=== PATIENT | female | born 1980 | race Caucasian/White ===

== ENCOUNTER 2017-07-25 04:54 | Observation (INO) | payer BC, OTHER ==
[2017-07-25] VITALS (11 sets, daily range): BP systolic 100–121; BP diastolic 56–72; PULSE 64–88; TEMP 36.3–36.9; O2SAT 93–100; Ht 149.9 cm; Wt 46.4 kg
[~2017-07-25] VITALS: Ht 149.9 cm; Wt 46.4 kg
[~2017-07-25 04:54] MED LIST: CLON0.5T3 PO; DICY20TA10 PO; ONDA4TAB46 PO; SERT50TA PO; [UNRECOGNIZED DRUG - CODE] PO
[2017-07-25] MEDS ORDERED: CIPROFLOXACIN / D5W 400 MG IV SCH (06:00)
[2017-07-25] MEDS ORDERED: CLINDAMYCIN IV 900 MG in DEXTROSE 5% ADD-VANTAGE 100ML 100 ML IV SCH (06:00)
[2017-07-25] MEDS ORDERED: LACTATED RINGER'S 1000ML 1,000 ML IV SCH (06:00)
[2017-07-25] MEDS ORDERED: LIDOCAINE HCL 1% 20 ML VIAL ONE (06:37)
[2017-07-25] MEDS ORDERED: CEFAZOLIN SOD 1 GM VIAL ONE (06:38)
[2017-07-25] MEDS ORDERED: BUPIVACAINE 0.5 % 5 MG/1 ML MPF 30ML VIAL ONE (06:38)
--- NOTE | 2017-07-25 06:40 | History & Physical Bridge Note ---
H&P Re-Evaluation Bridge Note: I have examined the patient, reviewed the History & Physical and in the interval since the performance of the History & Physical I have noted the following changes of clinical significance: No changes noted
[2017-07-25] MEDS ORDERED: MIDAZOLAM HCL 1 MG/ML 2ML VIAL ONE (06:47)
[2017-07-25] MEDS ORDERED: FENTANYL CITRATE INJ 50 MCG/1 ML 2 ML VIAL ONE (06:47)
[2017-07-25] MEDS ORDERED: KETOROLAC TROMETHAMINE 30 MG/ML VIAL ONE (07:36)
[2017-07-25] MEDS ORDERED: ONDANSETRON INJ 2 MG/ML 2 ML VIAL ONE ×2 (07:36→08:47)
[2017-07-25] MEDS ORDERED: CISATRACURIUM BESYLATE IV SOLN 2 MG/ML 10 ML VIAL ONE (07:36)
[2017-07-25] MEDS ORDERED: LIDOCAINE HCL 2% 2 ML VIAL (20MG/ML) ONE (07:36)
[2017-07-25] MEDS ORDERED: PROPOFOL IV EMULSION 10 MG/ML 20 ML VIAL IV ONE (07:36)
[2017-07-25] MEDS ORDERED: DEXAMETHASONE SOD INJ 4 MG/ML VIAL ONE (07:36)
[2017-07-25] MEDS ORDERED: GLYCOPYRROLATE INJ 0.2 MG/ML VIAL ONE (07:36)
[2017-07-25] MEDS ORDERED: NEOSTIGMINE METHYLSULFATE 5 MG/5 ML SYR ONE (07:36)
[2017-07-25] MEDS ORDERED: LARYING-O-JET KIT (LTA) ONE ×2 (07:36)
[2017-07-25] MEDS ORDERED: EpHEDrine SULFATE 50MG/5ML SYR ONE (07:58)
--- NOTE | 2017-07-25 08:13 | [facility] Operative Report ---
Operative Report Operative Date Jul 25, 2017. Pre-Operative Diagnosis Ventral Hernia Post-Operative Diagnosis Same- 2 defects Procedure(s) Performed Laparoscopic Ventral Hernia Repair with Mesh Surgeon Dr Almonte [employer] Attendant Surgeon(s) Melquiades Bautista PA-C Estimated Blood Loss 10ml Findings 3 cm defect at umbilicus and 1-2 cm defect 3 cm above umbilicus Specimens none Anesthesia gen Complication(s) None Disposition Recovery Room / PACU I attest to the content of the Intraoperative Record and any orders documented therein. Any exceptions are noted below.
[2017-07-25] MEDS ORDERED: PROMETHAZINE HCL INJ 12.5 MG in SODIUM CHLORIDE 0.9% 50ML 50 ML IV PRN (08:15)
[2017-07-25] MEDS ORDERED: NALOXONE HCL 0.4 MG/1 ML VIAL/CARP IV PRN (08:15)
[2017-07-25] MEDS ORDERED: FLUMAZENIL 0.1 MG/1 ML 10 ML VIAL IV PRN (08:15)
[2017-07-25] MEDS ORDERED: ATROPINE SULFATE 0.1 MG/ML 5ML SYR IV PRN (08:15)
[2017-07-25] MEDS ORDERED: CLONAZEPAM 0.5 MG TAB PO PRN (08:15)
[2017-07-25] MEDS ORDERED: MoRPHine SULFATE 2 MG/ML CARP IV PRN (08:15)
[2017-07-25] MEDS ORDERED: ONDANSETRON INJ 2 MG/ML 2 ML VIAL IV PRN ×2 (08:15)
[2017-07-25] MEDS ORDERED: OXYCODONE/ACETAMINOPHEN 5-325 TAB PO PRN (08:15)
[2017-07-25] MEDS ORDERED: HYDROmorphone INJ 1 MG/ML SYR IV PRN (08:15)
[2017-07-25] MEDS ORDERED: EpHEDrine SULFATE INJ 50 MG/ML AMP IV PRN (08:15)
[2017-07-25] MEDS ORDERED: HYDROmorphone INJ 1 MG/ML SYR ONE (08:27)
[2017-07-25] MEDS ORDERED: OXYC-57 PO (08:37)
[2017-07-25] MEDS ORDERED: CEPH-571 PO (08:37)
--- NOTE | 2017-07-25 08:41 | Discharge Instructions ---
Discharge Instructions Date of Service Jul 25, 2017. Admission Reason for Admission: Ventral Hernia Discharge Discharge Diagnosis / Problem: incisional hernias Discharge Goals Goal(s): Decrease discomfort, Improve function, Improve disease control Activity Recommendations Activity Limitations: as noted below Lifting Limitations: no more than 25 pounds Exercise/Sports Limitations: until after follow-up appointment May Resume Sexual Activity: when tolerated Shower/Bathe: tomorrow Driving or Machine Use: wait 5 days SPECIAL CARE INSTRUCTIONS: * Cover incisions and change daily for comfort/drainage. may leave uncovered with dermabond * Leave steri strips in place avoid constipation- may take Senokot S and Milk of magnesia twice daily as directed on the package * May use ibuprofen for pain as tolerated. * Expect some swelling and bruising. Call your doctor if: * Temperature above 101 degrees * Pain not relieved by pain medicine ordered * There is increased drainage or redness from any incision * You have any unanswered questions or concerns [phone]. FOLLOW UP VISIT: If not already scheduled, please call the office for a follow-up visit. for 2 weeks- check up- no sutures to remove OFFICE PHONE NUMBER: Dr. Almonte Office . Current Hospital Diet Patient's current hospital diet: Regular Diet Discharge Diet Recommended Diet: Regular Diet Procedures Procedures Performed: Laparoscopic Ventral Hernia Repair with Mesh Pending Studies Studies pending at discharge: no Medical Emergencies . Who to Call and When: Medical Emergencies: If at any time you feel your situation is an emergency, please call 911 immediately. . Non-Emergent Contact Non-Emergency issues call your: Primary Care Provider, Surgeon . "Provider Documentation" section prepared by Donovan Almonte. . VTE Core Measure Inpt VTE Proph given/why not?: SCD's
--- NOTE | 2017-07-25 08:50 | OPERATIVE REPORT ---
DATE OF OPERATION: 07/25/2017 NAME OF OPERATION: Laparoscopic incisional hernia repair. PREOPERATIVE DIAGNOSIS: Incisional hernia. POSTOPERATIVE DIAGNOSIS: Same with 2 defects. STAFF SURGEON: Dr. Donovan Almonte. RN TELEHEALTH: Melquiades Bautista PA-C ANESTHESIA: General. FINDINGS: Under laparoscopy, I was able to identify 2 defects, one at the umbilicus, which was approximately 3 cm and then there was a second defect approximately 2-3 cm above this at a site of previous repair of approximately 1-2 cm in diameter. These were both repaired with 1 piece of mesh. DESCRIPTION OF PROCEDURE: The patient was brought into the operating room and placed on the operating table in the supine position. Pneumatic stockings, orogastric tube and Ledbetter catheter were placed. Her abdomen was prepped and draped in the usual fashion. 0.5% plain Marcaine was used to anesthetize all incisions. Incision was made in the left upper quadrant, carrying dissection down under visualization, entering the abdominal cavity, placing an 11-mm port and producing pneumoperitoneum. A camera was passed and a 5-mm port was placed in the left lower quadrant and two 5-mm ports placed on the right side, one on the right lower quadrant and one in the mid right side. The defects were identified. There was some preperitoneal fatty tissue attached to the upper site. This was taken down and the fascia mobilized 3-4 cm around both defects. A 12.5-cm piece of Surgimesh was obtained. It was trimmed to 10 cm wide, placed into the abdomen with the polypropylene toward the fascia and the silicone toward the bowel. There was omentum covering her bowel. The suture in the center of the mesh was brought up through the abdominal wall and then the mesh was secured using 2 rows of absorbable tacks, one outer and one inner row. With good placement, the mid suture was removed and then all ports were removed. The defects were closed using subcuticular 4-0 Monocryl with Steri-Strips in the left upper quadrant and Dermabond on the remainder of the sites. The patient was transferred to recovery room in stable condition. I attest to the content of the Intraoperative Record and any orders documented therein. Any exception s are noted below.
[2017-07-25] MEDS ORDERED: IV FLUIDS COMPLETED PRN (09:00)
[2017-07-25] MEDS: SERTRALINE HCL 50 MG TAB PO SCH (09:00)
--- NOTE | 2017-07-25 09:40 | Anesthesiology Progress Note ---
Anesthesia Post Op Note Date & Time Jul 25, 2017 at 09:40 Vital Signs Pain Intensity: 6 Vital Signs Past 12 Hours Date Time Temp Pulse Resp B/P (MAP) Pulse Ox O2 Delivery O2 Flow Rate FiO2 07/25/17 09:30 89 16 102/67 97 Nasal Cannula 2 07/25/17 09:20 36.4 76 13 121/71 96 Nasal Cannula 2 07/25/17 09:10 75 18 105/63 97 Nasal Cannula 2 07/25/17 09:00 72 14 92/69 (71) 98 Nasal Cannula 2 07/25/17 08:50 80 19 114/77 96 Nasal Cannula 2 07/25/17 08:40 71 13 136/80 100 Oxymask 10 07/25/17 08:30 88 17 128/65 100 Oxymask 10 07/25/17 08:21 37.2 80 14 128/78 100 Oxymask 10 07/25/17 05:27 36.9 79 18 118/69 (85) 100 Room Air Notes Mental Status: alert / awake / arousable, participated in evaluation Pt Amnestic to Procedure: Yes Nausea / Vomiting: adequately controlled Pain: adequately controlled Airway Patency, RR, SpO2: stable & adequate BP & HR: stable & adequate Hydration State: stable & adequate Anesthetic Complications: no major complications apparent
[2017-07-25] MEDS ORDERED: PROMETHAZINE HCL INJ 25 MG in SODIUM CHLORIDE 0.9% 50ML 50 ML IV PRN (10:00)
[2017-07-25] MEDS: LACTATED RINGER'S 1000ML 1,000 ML IV SCH (11:05)
[2017-07-25] MEDS: OXYCODONE/ACETAMINOPHEN 5-325 TAB PO PRN ×3 (12:11→19:58)
[2017-07-25] MEDS: MAGNESIUM HYDROXIDE SUSP 30 ML UDC PO SCH ×2 (13:00→20:54)
[2017-07-25] MEDS: DOCUSATE SODIUM/SENNA 50/8.6MG TAB PO SCH ×2 (13:00→20:53)
[2017-07-25] MEDS ORDERED: CLINDAMYCIN 600 MG/54 ML D5W IV SCH (14:00)
[2017-07-25] MEDS: KETOROLAC TROMETHAMINE 15 MG/ML VIAL IV. SCH ×2 (16:00→19:59)
[2017-07-25] MEDS: CEFAZOLIN IV 1,000 MG in DEXTROSE 5% 50ML 50 ML IV SCH ×2 (16:00→19:59)
[2017-07-25] MEDS: MoRPHine SULFATE 4 MG/ML 1 ML CARP\\VIAL IV PRN ×2 (19:30→23:50)
[2017-07-26] MEDS: OXYCODONE/ACETAMINOPHEN 5-325 TAB PO PRN ×3 (00:59→11:15)
[2017-07-26] MEDS: KETOROLAC TROMETHAMINE 15 MG/ML VIAL IV. SCH (01:55)
[2017-07-26] MEDS: CEFAZOLIN IV 1,000 MG in DEXTROSE 5% 50ML 50 ML IV SCH (01:56)
[2017-07-26] MEDS: LACTATED RINGER'S 1000ML 1,000 ML IV SCH (03:51)
[2017-07-26 03:54] VITALS: BP 101/65; PULSE 68; TEMP 36.7; O2SAT 98
[2017-07-26 04:57] LABS: HEMATOCRIT 33.5 % (37-47); MEAN CELL VOLUME 94.6 fL (80-100); MEAN CORPUSCULAR HEMOGLOBIN 31.4 pg (25-34); MEAN CORPUSCULAR HGB CONC 33.1 g/dl (32-36); MEAN PLATELET VOLUME 9.5 fL (7.4-10.4); PLATELET COUNT 268 K/uL (130-400); RED BLOOD COUNT 3.54 M/uL (4.2-5.4); WHITE BLOOD COUNT 7.78 K/uL (4.8-10.8)
[2017-07-26 05:22] LABS: BUN/CREATININE RATIO 5.8 (10-20); CALCIUM 8.2 mg/dl (8.5-10.1); CREATININE 0.77 mg/dl (0.60-1.20); POTASSIUM 3.5 mmol/L (3.5-5.1)
[2017-07-26] MEDS ORDERED: CIPR-255 PO (06:04)
--- NOTE | 2017-07-26 06:08 | Surgery Progress Note ---
Surgery Progress Note Date of Service Jul 26, 2017. Subjective overall doing ok- some mild pain and some itching Objective Vital Signs: Date Time Temp Pulse Resp B/P (MAP) Pulse Ox O2 Delivery O2 Flow Rate FiO2 07/26/17 03:54 36.7 68 16 101/65 (77) 98 Room Air 07/25/17 23:54 Room Air 07/25/17 22:52 36.6 64 16 103/68 (80) 98 Room Air 07/25/17 19:21 36.7 68 16 108/68 (81) 99 Room Air 07/25/17 15:15 Room Air 07/25/17 15:12 36.9 68 16 112/72 (85) 95 Room Air 07/25/17 13:30 36.4 84 16 112/72 (85) 95 Room Air 07/25/17 12:00 36.8 64 20 100/60 (73) 95 Room Air 07/25/17 11:06 16 112/69 (83) 93 Room Air 07/25/17 10:30 36.3 65 18 121/56 (77) 93 Room Air 07/25/17 10:00 93 Room Air 07/25/17 10:00 93 Room Air 07/25/17 10:00 36.4 88 20 104/61 (75) 93 Room Air 07/25/17 09:45 91 20 111/75 94 Nasal Cannula 2 07/25/17 09:30 89 16 102/67 97 Nasal Cannula 2 07/25/17 09:20 36.4 76 13 121/71 96 Nasal Cannula 2 07/25/17 09:10 75 18 105/63 97 Nasal Cannula 2 07/25/17 09:00 72 14 92/69 (71) 98 Nasal Cannula 2 07/25/17 08:50 80 19 114/77 96 Nasal Cannula 2 07/25/17 08:40 71 13 136/80 100 Oxymask 10 07/25/17 08:30 88 17 128/65 100 Oxymask 10 07/25/17 08:21 37.2 80 14 128/78 100 Oxymask 10 General Appearance: no apparent distress Respiratory/Chest: no respiratory distress Abdomen: soft Incision(s): dry, intact Laboratory Results: Results Past 24 Hours Test 07/26/17 04:33 Range/Units White Blood Count 7.78 4.8-10.8 K/uL Red Blood Count 3.54 4.2-5.4 M/uL Hemoglobin 11.1 12.0-16.0 g/dL Hematocrit 33.5 37-47 % Mean Corpuscular Volume 94.6 80-100 fL Mean Corpuscular Hemoglobin 31.4 25-34 pg Mean Corpuscular Hemoglobin Concent 33.1 32-36 g/dl RDW Standard Deviation 45.3 36.4-46.3 fL RDW Coefficient of Variation 13.0 11.5-14.5 % Platelet Count 268 130-400 K/uL Mean Platelet Volume 9.5 7.4-10.4 fL Sodium Level 140 136-145 mmol/L Potassium Level 3.5 3.5-5.1 mmol/L Chloride Level 105 98-107 mmol/L Carbon Dioxide Level 29 21-32 mmol/L Anion Gap 6.0 3-11 mmol/L Blood Urea Nitrogen 4 7-18 mg/dl Creatinine 0.77 0.60-1.20 mg/dl Est Creatinine Clear Calc Drug Dose 67.6 ml/min Estimated GFR () 113.5 Estimated GFR (Non- 97.9 BUN/Creatinine Ratio 5.8 10-20 Random Glucose 136 70-99 mg/dl Calcium Level 8.2 8.5-10.1 mg/dl Assessment & Plan 07/26/17- s/p laparoscopic incisional hernia repair with mesh- d/c IV atbx, try Cipro po, cont po/IV pain med for now try abd binder- ambulate
[2017-07-26 07:51] VITALS: BP 91/49; PULSE 54; TEMP 36.9; O2SAT 95
[2017-07-26] MEDS ORDERED: CIPROFLOXACIN 500 MG TAB PO SCH (09:00)
[2017-07-26] MEDS: DOCUSATE SODIUM/SENNA 50/8.6MG TAB PO SCH (09:51)
[2017-07-26] MEDS: MAGNESIUM HYDROXIDE SUSP 30 ML UDC PO SCH (09:51)
[2017-07-26] MEDS: SERTRALINE HCL 50 MG TAB PO SCH (09:51)
[2017-07-26 12:32] VITALS: BP 91/49; PULSE 54; TEMP 36.9; O2SAT 95
--- NOTE | 2017-07-26 13:26 | DISCHARGE SUMMARY ---
DATE OF DISCHARGE: 07/26/2017 PRINCIPAL DIAGNOSIS: Incisional hernias. PROCEDURE: The patient underwent laparoscopic incisional hernia repair with mesh. HISTORY OF PRESENT ILLNESS: The patient is a 36-year-old female who has had prior umbilical and supraumbilical hernia repairs with recurrence now for laparoscopic repair. HOSPITAL COURSE: The patient was brought in the hospital 07/25/2017 where she underwent laparoscopic incisional hernia repair x2 with mesh. She tolerated the procedure very well and has done well postoperatively and is felt stable for discharge home today to be followed in the surgical clinic within 1-2 weeks.
== END 2017-07-26 14:35 | disposition home or self-care (01) ==
LOC: C.ACU 04:54 → C.MSN 08:19 → ENRESERV 09:20
PROVIDERS: ADMIT Surgery; ATTEND Surgery
DX: K43.2 Incisional hernia without obstruction or gangrene (principal); F41.8 Other specified anxiety disorders; Z79.3 Long term (current) use of hormonal contraceptives; Z98.51 Tubal ligation status; K58.9 Irritable bowel syndrome, unspecified; Z87.891 Personal history of nicotine dependence